=== PATIENT | male | born 1955 | race Caucasian/White ===

== ENCOUNTER → 2016-12-28 | Outpatient (CLI) | payer OTHER ==
[~2016-12-28] VITALS: Ht 162.6 cm; Wt 74.8 kg
[~2016-12-28] MED LIST: ADVIN25/60 INH; GLUC250C5 PO; LEVO1TAB33 PO; LORA10CA2 PO; TYLOTC500 PO
[2016-12-28 15:54] VITALS: BP 119/79; PULSE 73; Ht 162.6 cm; Wt 74.8 kg
== END | disposition home or self-care (01) ==
LOC: C.NEUR 15:29
PROVIDERS: ATTEND Physician Assistant
DX: G47.33 Obstructive sleep apnea (adult) (pediatric) (principal); J31.0 Chronic rhinitis